=== PATIENT | female | born 1980 | race Caucasian/White ===

== ENCOUNTER 2017-06-14 18:04 | Emergency (ER) | payer SELFPAY ==
[2017-06-14] MEDS ORDERED: DIPH/PERTUSS(ACELL)/TETANUS VAC/PF 0.5 ML SYR (>=10YO) IM ONE (19:07)
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
[2017-06-14 20:59] VITALS: BP 116/66
== END 2017-06-14 20:57 | disposition home or self-care (01) ==
LOC: ER 18:04
DX: S00.83XA Contusion of other part of head, initial encounter (principal); H57.11 Ocular pain, right eye; H53.8 Other visual disturbances; F17.200 Nicotine dependence, unspecified, uncomplicated; X58.XXXA Exposure to other specified factors, initial encounter
CPT/HCPCS: 70486; 90471; 90715; 99284